=== PATIENT | male | born 1965 | race African-American/Black ===

== ENCOUNTER 2018-03-23 14:10 | Emergency (ER) | payer MEDICAID, OTHER ==
[~2018-03-23] VITALS: Ht 167.6 cm; Wt 66.0 kg
[~2018-03-23 14:10] MED LIST: ATOR20TA; OXYCODONE; [UNRECOGNIZED DRUG - OTHER]; [UNRECOGNIZED DRUG - OTHER]
[2018-03-23 14:29] VITALS: BP 127/93
== END 2018-03-23 22:00 | disposition left against medical advice (07) ==
LOC: ER 15:57
DX: M79.89 Other specified soft tissue disorders (principal); M79.642 Pain in left hand; Z53.21 Procedure and treatment not carried out due to patient leaving prior to being seen by health care provider